=== PATIENT | female | born 1970 | race Two or more races ===

== ENCOUNTER 2022-03-29 08:18 | Outpatient (CLI) | payer OTHER | END 2022-03-29 08:19 | disposition home or self-care (01) | LOC: LAB 08:18 | DX: E03.8 Other specified hypothyroidism (principal); E11.65 Type 2 diabetes mellitus with hyperglycemia; Z13.220 Encounter for screening for lipoid disorders; Z12.11 Encounter for screening for malignant neoplasm of colon ==

== ENCOUNTER 2022-03-29 08:59 | Outpatient (CLI) | payer OTHER | END 2022-03-29 09:00 | disposition home or self-care (01) | LOC: RAD 08:59 | DX: Z12.31 Encounter for screening mammogram for malignant neoplasm of breast (principal); F17.210 Nicotine dependence, cigarettes, uncomplicated; E03.8 Other specified hypothyroidism ==

== ENCOUNTER 2022-12-30 08:29 | Outpatient (CLI) | payer OTHER | END 2022-12-30 08:36 | disposition home or self-care (01) | LOC: LAB 08:29 | DX: E11.65 Type 2 diabetes mellitus with hyperglycemia (principal); Z00.01 Encounter for general adult medical examination with abnormal findings ==

== ENCOUNTER 2023-03-17 11:50 | Outpatient (CLI) | payer OTHER | END 2023-03-17 11:54 | disposition home or self-care (01) | LOC: LAB 11:50 | DX: E78.2 Mixed hyperlipidemia (principal); E11.65 Type 2 diabetes mellitus with hyperglycemia; M06.4 Inflammatory polyarthropathy; E03.8 Other specified hypothyroidism; Z00.01 Encounter for general adult medical examination with abnormal findings ==

== ENCOUNTER 2023-08-22 08:06 | Emergency (ER) | payer OTHER ==
[~2023-08-22] VITALS: Ht 157.5 cm; Wt 97.5 kg
[2023-08-22] MEDS ORDERED: ATARAX10 MG (08:13)
[2023-08-22] MEDS ORDERED: SYNTHROID300 MCG (08:13)
[2023-08-22] MEDS ORDERED: GLUMETZA1000 MG (08:13)
[2023-08-22] MEDS ORDERED: NEURONTIN600 M1 (08:14)
[2023-08-22] MEDS ORDERED: TERBINAFINE HC250 MG PO (08:38)
[2023-08-22] MEDS ORDERED: CLOTRIMAZOLE-BE15 G1 TOP (08:38)
[2023-08-22 10:12] LABS: PH,URINE 5.5 (5.0-8.0); URINE APPEARANCE Cloudy; URINE BILIRRUBIN Small (NEGATIVE); URINE BLOOD Trace; URINE COLOR Dark Yellow; URINE LEUKOCYTE Small; URINE NITRATE Positive
[2023-08-22 10:18] LABS: URINE EPITHELIAL CELLS 90.7 uL (0.0-38.8); URINE RBC 9.6 uL (0.0-20.8); URINE WBC 410.3 uL (0.0-23.2)
[2023-08-22 10:20] LABS: HEMATOCRIT 36.4 % (36.0-45.00); HEMOGLOBIN 12.6 g/dL (12.0-15.00); MEAN CELL VOLUME 86.9 fL (80.00-100.00); MEAN CORPUSCULAR HEMOGLOBIN 30.1 pg (27.00-32.0); MEAN CORPUSCULAR HGB CONC 34.7 g/dl (32.0-36.0); PLATELET COUNT 366 K/uL (150-450); RED BLOOD COUNT 4.19 M/uL (4.00-6.00); RED CELL DISTRIBUTION WIDTH 14.2 % (11.5-14.5)
[2023-08-22 11:08] LABS: URINE GLUCOSE 250 MG/DL (NEGATIVE); URINE PROTEIN 100 (NEGATIVE)
[2023-08-22] MEDS ORDERED: MACRODANTIN100 M1 PO (11:23)
== END 2023-08-22 11:41 | disposition home or self-care (01) ==
LOC: ER 08:07
PROVIDERS: General Practice
DX: N39.0 Urinary tract infection, site not specified (principal); R21 Rash and other nonspecific skin eruption; R10.31 Right lower quadrant pain; K44.9 Diaphragmatic hernia without obstruction or gangrene; K76.0 Fatty (change of) liver, not elsewhere classified; E11.9 Type 2 diabetes mellitus without complications; Z79.84 Long term (current) use of oral hypoglycemic drugs

== ENCOUNTER 2024-09-02 12:08 | Inpatient (IN) | payer OTHER ==
[~2024-09-02] VITALS: Ht 157.5 cm; Wt 90.7 kg
[~2024-09-02 12:08] MED LIST: ATARAX10 MG; CLOTRIMAZOLE-BE15 G1 TOP; GLUMETZA1000 MG; MACRODANTIN100 M1 PO; NEURONTIN600 M1; SYNTHROID300 MCG; TERBINAFINE HC250 MG PO
--- NOTE | 2024-09-02 12:34 | NUR ---
PTE ALERTA Y ORIENTADA X3 SE RECIBE EN AMBULANCIA QUE REFIERE DOLOR BADOMINLA EN EL CUADRANTE SUPERIOR QUE LE CORRE AL PECHO, REFIERE NAUSEAS. EN AMBULANCIA LE ADMINISTRARON VASOTEC 1.25MG. SE LE JACKELIN S/V Y SE UBICA
[2024-09-02] MEDS ORDERED: FAMOtidine 10 MG/ML (4ML VIAL) IV ONE (13:00)
[2024-09-02] MEDS ORDERED: 0.9 % SODIUM CHLORIDE 1,000 ML IV ONE (13:00)
--- NOTE | 2024-09-02 13:28 | NUR ---
SE ORIENTA PTE SOBRE TX, REFIERE ENTENDER Y ACEPTAR. SE SHALONDA MUESTRAS DE LABORATORIO Y SE ADMINISTRAN MEDICAMENTOS SARAI ORDEN MEDICA Y BAJO MEDIDAS ASEPTICAS. PTE TOLERA Y NO PRESENTA REACCION ADVERSA. PTE PREVIAMENTE CANALIZADA EN AMBULANCIA CON ANGIO #20, PATENTE, SHIRLEY DE EDEMA Y ERITEMA.
[2024-09-02 13:30] LABS: PH,URINE 5.5 (5.0-8.0); URINE APPEARANCE Clear; URINE BILIRRUBIN Negative (NEGATIVE); URINE BLOOD Negative; URINE COLOR Yellow; URINE KETONE 15 (NEGATIVE); URINE LEUKOCYTE Negative; URINE NITRATE Negative; URINE PROTEIN Negative (NEGATIVE); URINE UROBILINOGEN 0.2 E.U./dl
[2024-09-02 13:31] LABS: HEMATOCRIT 44.5 % (36.0-45.00); HEMOGLOBIN 14.8 g/dL (12.0-15.00); MEAN CELL VOLUME 89.3 fL (80.00-100.00); MEAN CORPUSCULAR HEMOGLOBIN 29.7 pg (27.00-32.0); MEAN CORPUSCULAR HGB CONC 33.3 g/dl (32.0-36.0); PLATELET COUNT 316 K/uL (150-450); RED BLOOD COUNT 4.99 M/uL (4.00-6.00); RED CELL DISTRIBUTION WIDTH 14.3 % (11.5-14.5)
[2024-09-02 13:34] LABS: URINE BACTERIA 175.1 uL (0.0-1933); URINE EPITHELIAL CELLS 8.3 uL (0.0-38.8); URINE WBC 6.4 uL (0.0-23.2)
[2024-09-02 13:55] LABS: URINE GLUCOSE >=1000 MG/DL (NEGATIVE); URINE RBC 0.4 uL (0.0-20.8)
[2024-09-02 14:11] LABS: ABG PH 7.398 (7.35-7.45); ABG PO2 81.7 mmHg (80-100); ABG pCO2 37.4 mmHg (35-45); BASE EXCESS -1.8 mmol/l; BICARBONATE 22.5 mmol/l (23-25); SaO2 95.8 %; Tco2 23.7 mmol/l
[2024-09-02 14:18] LABS: allen test SATISFACTORY; o2 21 %; puncture site RADIAL LEFT
[2024-09-02 14:40] LABS: INR 0.99; PARTIAL THROMBOPLASTIN TIME 27.9 SECONDS (22.0-34.0); PROTHROMBIN TIME 10.8 SECONDS (9.0-11.5)
[2024-09-02 14:44] LABS: ALBUMIN 3.2 gm/dL (3.4-5.0); BILIRUBIN TOTAL 0.29 mg/dL (0.3-1.2); CALCIUM 9.7 mg/dL (8.5-10.1); CREATININE SERUM 0.56 mg/dL (0.55-1.02); GFR 113.24; GLOBULINA 4.4 G/DL (2.4-3.5); POTASSIUM 3.64 mEq/L (3.5-5.1); TOTAL PROTEIN 7.6 gm/dL (6.4-8.2)
[2024-09-02] MEDS ORDERED: TICAGRELOR 90 MG TABLET PO ONE (20:15)
[2024-09-02] MEDS ORDERED: ASPIRIN 325 MG TABLET PO ONE (20:15)
[2024-09-02] MEDS ORDERED: NITROGLYCERIN IN 5 % DEXTROSE 50 MG/250 ML BOTTLE IV SCH (20:45)
[2024-09-02] MEDS ORDERED: INSULIN REGULAR, HUMAN 1,000 UNIT/10 ML UNITS IV ONE (20:45)
[2024-09-02] MEDS ORDERED: ATORVASTATIN CALCIUM 40 MG TABLET PO SCH (20:54)
[2024-09-02] MEDS ORDERED: ACETAMINOPHEN 500 MG GEL..CAP PO PRN (21:00)
[2024-09-02] MEDS ORDERED: DEXTROSE 50 % IN WATER 0.5 G/ML DISP.SYRIN IV PRN (21:00)
[2024-09-02] MEDS ORDERED: ENOXAPARIN SODIUM 80 MG/0.8 ML SYRINGE SUBCUTANEO SCH (21:00)
[2024-09-02] MEDS ORDERED: 0.9 % SODIUM CHLORIDE 1,000 ML IV SCH (21:00)
[2024-09-02] MEDS ORDERED: INSULIN LISPRO 1,000 UNIT/10 ML UNITS SUBCUTANEO PRN (21:00)
[2024-09-02 22:06] VITALS: BP 130/80; O2SAT 95
[2024-09-02] MEDS ORDERED: hydrOXYzine PAMOATE 25 MG CAPSULE PO SCH (22:15)
[2024-09-03] VITALS: BP 138/78; O2SAT 98
[2024-09-03] MEDS ORDERED: TICAGRELOR 90 MG TABLET PO SCH (05:00)
[2024-09-03] MEDS ORDERED: LEVOTHYROXINE SODIUM 200 MCG TABLET PO SCH (06:00)
[2024-09-03 07:20] LABS: CHOL HDL RATIO 6.6 (0-5.0); TSH 2.05 uIU/mL (0.358-3.74)
[2024-09-03] MEDS ORDERED: ASPIRIN 81 MG TAB.CHEW PO SCH (09:00)
[2024-09-03] MEDS ORDERED: FAMOTIDINE/PF 20 MG in 0.9 % SODIUM CHLORIDE 8 ML IV PUSH SCH (09:00)
[2024-09-03 10:24] VITALS: BP 110/63; O2SAT 100
[2024-09-03 14:49] VITALS: O2SAT 98
[2024-09-03 17:53] VITALS: BP 107/65
[2024-09-03 18:00] VITALS: O2SAT 97
[2024-09-03 21:00] VITALS: O2SAT 98
[2024-09-03] MEDS ORDERED: hydrOXYzine PAMOATE 25 MG CAPSULE PO SCH (21:00)
[2024-09-04 02:00] VITALS: O2SAT 95
[2024-09-04 02:57] VITALS: BP 117/65; O2SAT 94
[2024-09-04 06:13] VITALS: O2SAT 96
[2024-09-04 08:35] VITALS: BP 116/74
[2024-09-04 08:57] VITALS: O2SAT 97
[2024-09-04 12:31] VITALS: O2SAT 90
== END 2024-09-04 22:32 | disposition designated cancer center or children's hospital (05) | DRG 282 ==
LOC: ER 12:08 → ICU-2 22:10 → MEDJ 22:10
PROVIDERS: General Practice; ADMIT Internal Medicine; ATTEND Internal Medicine
PROC: B246ZZZ Ultrasonography of Right and Left Heart (ICD-10-PCS; principal; 2024-09-02)
PROC: 4A12X4Z Monitoring of Cardiac Electrical Activity, External Approach (ICD-10-PCS; 2024-09-03)
DX: I21.4 Non-ST elevation (NSTEMI) myocardial infarction (principal); I10 Essential (primary) hypertension; I11.9 Hypertensive heart disease without heart failure; E78.49 Other hyperlipidemia; E11.9 Type 2 diabetes mellitus without complications; Z79.4 Long term (current) use of insulin